=== PATIENT | female | born 1975 | race African-American/Black ===

== ENCOUNTER 2019-01-16 03:38 | Emergency (ER) | payer OTHER ==
[~2019-01-16] VITALS: Ht 167.6 cm; Wt 127.0 kg
[2019-01-16 04:05] LABS: HEMATOCRIT 29.9 % (37.0-47.0); HEMOGLOBIN 8.8 gm/dL (12.0-15.0); MCH 17.4 pg (26.0-34.0); MCHC 29.4 g/dL (28.0-37.0); MCV 59.2 fL (80.0-100.0); PLATELET COUNT 370 thou/uL (150-400); RBC 5.05 mil/uL (4.20-5.00); WBC 11.1 thou/uL (4.0-11.0)
[2019-01-16 04:12] LABS: ANION GAP 11 mmol/L (7-16); BUN 11 mg/dL (7-18); CALCIUM 9.4 mg/dL (8.5-10.1); CHLORIDE 99 mmol/L (98-107); CO2 25 mmol/L (21-32); CREATININE 0.9 mg/dL (0.6-1.0); GLUCOSE 178 mg/dL (74-106); POTASSIUM 3.8 mmol/L (3.5-5.1); SODIUM 135 mmol/L (136-145)
[2019-01-16 04:22] LABS: ALBUMIN 3.4 g/dL (3.4-5.0); LIPASE 42 U/L (73-393); SGOT 32 U/L (15-37); SGPT 33 U/L (30-65); TOTAL BILIRUBIN 0.3 mg/dL (<0.1-1.0); TOTAL PROTEIN 8.4 g/dL (6.4-8.2); TROPONIN-I <0.06 ng/mL (<0.06)
[2019-01-16 05:01] LABS: ABSOLUTE NEUTROPHILS 9.2 thou/uL (1.4-8.2); ANISOCYTOSIS 2+; HYPOCHROMASIA 3+; MICROCYTES 3+; POLYCHROMASIA 1+
[2019-01-16 05:02] LABS: PLATELET ESTIMATE NORMAL
[2019-01-16] MEDS ORDERED: ONDANSETRON ODT8 MG PO (05:19)
[2019-01-16 05:32] LABS: URINE BILIRUBIN NEGATIVE (Negative); URINE BLOOD 1+ (Negative); URINE CLARITY CLEAR; URINE COLOR YELLOW; URINE GLUCOSE-RANDOM* NEGATIVE (Negative); URINE KETONES TRACE (Negative); URINE LEUKOCYTES-REFLEX TRACE (Negative); URINE NITRITE-REFLEX POSITIVE (Negative); URINE PROTEIN (DIPSTICK) 1+ (Negative); URINE SPECIFIC GRAVITY 1.025 (1.005-1.035)
[2019-01-16 05:33] VITALS: BP 146/74
[2019-01-16 05:39] LABS: CASTS None Seen /LPF (None Seen); MUCUS None Seen strn/LPF (None Seen); SQUAMOUS 4-10 Moderate /LPF (0-3); URINE RBC 0-2 Rare /HPF (0-2); URINE WBC-REFLEX 0-5 Rare /HPF (0-5)
[2019-01-16 05:40] LABS: BACTERIA-REFLEX >30 Many /HPF (None Seen); CRYSTALS None Seen /LPF (None Seen)
--- NOTE | 2019-01-16 08:49 | EKG ---
[address] [place] [address] ELECTROCARDIOGRAM REPORT Name: ZORAIDA WOO Room #: DEP YOUSIF Monsivais#: [id number] ������������������ Admission: 01/16/19 ������������������ Attend Phys: Discharge: 01/16/19 ������������������ Date of : 71 Report #: [id number] ����������������������������������������������������������������� [id number] THIS REPORT FOR: //name// [facility] ED Test Date: 2019-01-16 Test Time: 04:00:09 Pat Name: ZORAIDA WOO Department: Room: Gender: F Refuse Collector: FLORENCIA : 1975 Requested By: Josh Mitchell Order Number: [id number] MD: Maksim Aguiar Measurements Intervals [place] Rate: 75 P: 47 PA: 151 QRS: 3 QRSD: 92 T: 21 QT: 391 QTc: 437 Interpretive Statements Sinus rhythm Low voltage, precordial leads Left ventricular hypertrophy Anterior Q waves, possibly due to LVH No previous ECG available for comparison Electronically Signed On 01-16-2019 8:49:08 CDT by Maksim Aguiar [email or web address] ��������������������������������������������� <ELECTRONICALLY SIGNED> ���������������������������������������� By: Maksim Aguiar MD ��������������������������������������������� 01/16/19 0849 0400 9 Maksim Aguiar MD /SON[facility]
== END 2019-01-16 05:38 | disposition home or self-care (01) ==
LOC: ER 03:38
PROVIDERS: Emergency Medicine
DX: R11.2 Nausea with vomiting, unspecified (principal); R19.7 Diarrhea, unspecified; R10.84 Generalized abdominal pain; I10 Essential (primary) hypertension; E11.9 Type 2 diabetes mellitus without complications